=== PATIENT | female | born 1955 | race Caucasian/White ===

== ENCOUNTER 2016-12-29 16:49 | Emergency (ER) | payer SELFPAY ==
--- NOTE | 2016-12-31 11:08 | ER ---
ADMIT: 12/29/2016 RM/LOC: ER [facility] MR#: [id number] [address] [id number] BHARTI SWENSON [address] [place] [address] Emergency Room Report SEX: F AGE: 61 : 1955 DATE: 12/29/2016 HISTORY OF PRESENT ILLNESS: The patient is a 61-year-old female, presents to the emergency room with right eye pain. She said the pain is going down to her right shoulder, and it feels like it is burning. She has some lesions outside the eyelid. Her vitals within normal limits. Mildly anxious. No allergies. No other medical issues. Eye examination does not get any dye uptake. No dendritic changes. CLINICAL IMPRESSION: Shingles of right facial nerve, right facial. Given acyclovir and prednisone. She has had this for a day and a half. She was encouraged to follow up with the eye doctor, although I did not find any spread of the shingles inside the eye, but because the lesions are right on top of the eyelid and on the lower eyelid, I am concerned that she may end up with lesions later on. Instructions given for followup. She has acyclovir, prednisone, and hydrocodone for pain control. KIANA Fowler / Tyson Mckinley MD / rital JOB #: [id number] CC: Tyson Mckinley MD, Attending Physician
[2017-01-23] MEDS ORDERED: TOUJEO SOL300 UNIT/1 SQ (16:04)
[2017-01-23] MEDS ORDERED: BACTROBAN CREAM15 GM TP (16:06)
[2017-01-23] MEDS ORDERED: HUMALOG100 UNIT/1 SQ (16:06)
[2017-01-23] MEDS ORDERED: GLUCOPHAGE-DPS500 MG PO (16:06)
== END 2016-12-29 20:09 | disposition home or self-care (01) ==
LOC: ER 16:49
DX: B02.9 Zoster without complications (principal)

== ENCOUNTER 2017-01-20 19:04 | Observation (INO) | payer SELFPAY ==
[~2017-01-20] VITALS: Ht 160 cm; Wt 60.0 kg
[2017-01-23] MEDS ORDERED: TOUJEO SOL300 UNIT/1 SQ (16:04)
[2017-01-23] MEDS ORDERED: GLUCOPHAGE-DPS500 MG PO (16:06)
[2017-01-23] MEDS ORDERED: BACTROBAN CREAM15 GM TP (16:06)
[2017-01-23] MEDS ORDERED: HUMALOG100 UNIT/1 SQ (16:06)
--- NOTE | 2017-01-26 07:51 | ER ---
ADMIT: 01/20/2017 RM/LOC: [address] [facility] MR#: [id number] [address] [facility] [address] [place] [id number] LOCKHARTBHARTI TERRY [address] [place] [address] Emergency Room Report SEX: F AGE: 61 : 1955 DATE: 01/20/2017 See T-sheet for complete H and P. ADDENDUM: The patient is a 61-year-old female, comes in with family with complaints of body aches all over, her feet hurt, feels very tired, and no energy. She has no previous medical history, does not take any medications. Her physical exam was unremarkable, but labs show that she has a glucose of 345 and has greater than a 1000 glucose in her urine with 1+ ketones. Her chemistries were otherwise unremarkable and her CBC was normal. I had a discussion with the family and due to their very little exposure to Western medicine and the patient's language barrier, I have concerns that she would not get good followup if I sent her home with a new-onset diabetes at this time, so we will be admitting her for further management of diabetes and diabetes education. I spoke to Dr. Ventura, who will be admitting the patient as she is a city call. DIAGNOSIS: New-onset diabetes. Kwesi Silver MD/ modl JOB #: [id number] CC: Wojciech Ventura MD, Attending Physician Wojciech Ventura MD, Family Physician
--- NOTE | 2017-01-30 21:00 | HP ---
ADMIT: 01/20/2017 RM/LOC: 622 [facility] MR#: [id number] 26[address] [facility] [address] [place], [place] [id number] BHARTI SWENSON [address] [place] [address] History and Physical SEX: F AGE: 61 : 1955 DATE OF SERVICE: CHIEF COMPLAINT: Fatigue and polyuria. HISTORY OF PRESENT ILLNESS: This is a 61-year-old female with no known past medical history, who was admitted with increasing fatigue and polyuria x2 days. She denies any fever, dysuria, abdominal pain, cough, or shortness of breath. She does see a provider at [facility] on an as-needed basis. Daughter states that she has had blood work done in the past and has never been told that she has diabetes or high cholesterol. She takes no medications and has had no surgeries. In the ED, her labs were significant for blood sugar of 345, and the UA that showed greater than a 1000 glucose and 1+ ketones. Her EKG showed normal sinus rhythm. Due to the fact that she is Urdu-speaking only and does not have a regular primary care provider, it was felt that she needed to be admitted for diabetic education and close followup. PAST MEDICAL HISTORY: None. Again occasionally, she sees a provider at the [facility]. PAST SURGICAL HISTORY: None. MEDICATIONS: None. ALLERGIES: NONE. SOCIAL HISTORY: Denies tobacco, alcohol, or illegal drug use. FAMILY HISTORY: Negative for coronary artery disease or stroke. REVIEW OF SYSTEMS: A 10-point review of systems was reviewed and negative other than that stated above in the HPI. PHYSICAL EXAMINATION: VITAL SIGNS: Blood pressure 123/64, pulse 76, respirations 16, afebrile, and saturating 96% on room air. GENERAL: She is sleepy, but arousable. HEENT: Mucous membranes are moist. Nose clear. Atraumatic. HEART: Regular rate and rhythm. No murmur. LUNGS: Clear. ADMIT: 01/20/2017 RM/LOC: 622 [facility] MR#: [id number] [address] [phone] BHARTI SWENSON [address] [place] [address] History and Physical SEX: F AGE: 61 : 1955 ABDOMEN: Soft, nontender, nondistended. Positive bowel sounds. EXTREMITIES: No edema. LABORATORY DATA: Sodium 140, potassium 3.8, creatinine 0.8, and glucose 345. White count 10.5, hemoglobin 13.5, and platelets 152. EKG normal sinus rhythm. Influenza was negative. UA showed a 1000+ glucose and 1+ ketones. ASSESSMENT/PLAN: Newly diagnosed type 2 diabetes mellitus. We will plan to observe her overnight, give her some IV fluids and diabetic diet when she is ready to eat, also have diabetic education see her tomorrow, and we will repeat her labs. I will put her on sliding scale insulin for now and likely switch her to orals tomorrow for discharge. Giselle Melendez DO Resident / Wojciech Ventura MD / modl JOB #: [id number] CC: Wojciech Ventura, Attending Physician Wojciech Ventura, Family Physician
== END 2017-01-22 10:40 | disposition home or self-care (01) ==
LOC: ER 19:04 → 6PED 21:35
PROVIDERS: ADMIT Family Medicine
DX: E11.9 Type 2 diabetes mellitus without complications (principal)